=== PATIENT | female | born 1950 | race African-American/Black ===

== ENCOUNTER 2023-08-20 09:00 | Emergency (ER) | payer MEDICARE, OTHER ==
[~2023-08-20] VITALS: Ht 170.2 cm; Wt 75.0 kg
[2023-08-20 09:07] VITALS: TEMP 98.3
[2023-08-20] MEDS ORDERED: METO25 PO (09:13)
[2023-08-20] MEDS ORDERED: METF-1185 PO (09:13)
[2023-08-20] MEDS ORDERED: LOSA-382 PO (09:13)
[2023-08-20] MEDS ORDERED: CALC-1038 PO (09:13)
[2023-08-20] MEDS ORDERED: GLIM2 PO (09:13)
[2023-08-20 09:58] LABS: COVID AG,FIA SOURCE NASAL SWAB
[2023-08-20 10:14] LABS: BASOPHILS % (AUTO) 1.1 % (0.0-2.0); EOSINOPHILS % (AUTO) 0.1 % (1.0-6.0); HEMATOCRIT 36.4 % (36-46); HEMOGLOBIN 11.9 g/dL (12.0-16.0); LYMPHOCYTES # (AUTO) 1.4 K/uL (1.0-4.8); LYMPHOCYTES % (AUTO) 27.1 % (22.0-44.0); MEAN CORPUSCULAR HEMOGLOBIN 27.8 pg (26.0-34.0); MEAN CORPUSCULAR HGB CONC 32.8 G/dL (31.0-37.0); MEAN CORPUSCULAR VOLUME 85 fL (80-100); MONOCYTES # (AUTO) 0.3 K/uL (0.1-1.0); NEUTROPHILS # (AUTO) 3.5 K/uL (1.8-7.7); NEUTROPHILS % (AUTO) 66.7 % (40.0-70.0); PLATELET COUNT (AUTO) 167 K/uL (150-450); RED CELL DISTRIBUTION WIDTH 14.3 % (11.5-14.5); WHITE BLOOD COUNT (AUTO) 5.3 K/uL (4.5-11.0)
[2023-08-20] MEDS: ONDANSETRON HCL 4 MG/2 ML VIAL IVP ONE (10:14)
[2023-08-20] MEDS: SODIUM CHLORIDE 0.9% 1,000 ML IV ONE (10:15)
[2023-08-20 10:18] LABS: INFLUENZA TYPE A NEGATIVE FOR TYPE A (NEGATIVE); INFLUENZA TYPE B NEGATIVE FOR TYPE B (NEGATIVE); SARS-COV2 (COVID) ANTIGEN,FIA Negative (Negative)
[2023-08-20 10:23] LABS: ANION GAP 10 mmol/L (8-16); CALCIUM, TOTAL 9.4 mg/dL (8.8-10.5); CARBON DIOXIDE 26 mmol/L (22-29); CHLORIDE 98 mmol/L (98-107); CREATININE 0.97 mg/dL (0.60-1.30); GLOMERULAR FILTR. RATE CALC > 60 mL/min (>60); GLUCOSE,RANDOM 165 mg/dL (70-110); POTASSIUM 3.9 mmol/L (3.5-5.1); SODIUM SERUM 134 mmol/L (136-145); UREA NITROGEN, BLOOD 16 mg/dL (7-18)
[2023-08-20 10:29] LABS: ALANINE AMINOTRANSFERASE 16 U/L (12-78); ALKALINE PHOSPHATASE 44 U/L (46-116); ASPARTATE AMINOTRANSFERASE 11 U/L (15-37); BILIRUBIN,TOTAL 0.8 mg/dL (0.1-1.0); LIPASE 50 U/L (16-77); TOTAL PROTEIN, SERUM 7.4 g/dL (6.4-8.2)
[2023-08-20] MEDS: CloNIDine HCL 0.1 MG TABLET PO ONE (11:12)
[2023-08-20] MEDS ORDERED: AmLODIPine BESYLATE 5 MG TABLET PO ONE (11:15)
[2023-08-20 12:13] VITALS: BP 158/77; PULSE 66; RESP 16
[2023-08-20] MEDS ORDERED: ONDA-104 PO (12:42)
[2023-08-20] MEDS ORDERED: CLON0.1T2 PO (12:43)
== END 2023-08-20 13:23 | disposition home or self-care (01) ==
LOC: EMS 09:02
DX: I10 Essential (primary) hypertension (principal); R11.0 Nausea; E11.9 Type 2 diabetes mellitus without complications; Z88.0 Allergy status to penicillin; Z20.822 Contact with and (suspected) exposure to COVID-19
CPT/HCPCS: 99285; 96374; 71045; 96361; 87426; 80053; 83690; 85025; 87804; 36415; 93005; J2405; J7030

== ENCOUNTER 2023-11-13 10:42 | Emergency (ER) | payer MEDICARE, OTHER ==
[~2023-11-13] VITALS: Ht 167.6 cm; Wt 75.0 kg
[~2023-11-13 10:42] MED LIST: CALC-1038 PO; CLON0.1T2 PO; GLIM2 PO; LOSA-382 PO; METF-1185 PO; METO25 PO; ONDA-104 PO
[2023-11-13 10:46] VITALS: BP 181/84; PULSE 97; RESP 14; TEMP 97.3
== END 2023-11-13 12:53 | disposition left against medical advice (07) ==
LOC: EMS 10:42
DX: R42 Dizziness and giddiness (principal); Z53.21 Procedure and treatment not carried out due to patient leaving prior to being seen by health care provider
CPT/HCPCS: 93005